=== PATIENT | female | born 1985 | race American Indian/Alaskan Native ===

== ENCOUNTER 2017-04-26 15:13 | Emergency (ER) | payer OTHER ==
[2017-04-26 15:18] VITALS: BP 144/98
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
== END 2017-04-26 18:45 | disposition home or self-care (01) ==
LOC: ED 15:13
DX: M54.5 Low back pain (principal); M54.2 Cervicalgia; M54.6 Pain in thoracic spine
CPT/HCPCS: 72040

== ENCOUNTER 2019-05-12 14:15 | Inpatient (IN) | payer OTHER ==
[2019-05-12 15:19] LABS: Basophils # (Auto) 0.1 K/mm3 (0.0-0.1); Basophils % (Auto) 0.7 % (0.0-1.8); Eosinophils # (Auto) 0.1 K/mm3 (0.0-0.4); Eosinophils % (Auto) 1.1 % (0.0-4.3); Hematocrit 40.6 % (30.3-42.9); Hemoglobin 12.9 gm/dl (10.1-14.3); Lymphocytes # (Auto) 2.7 K/mm3 (1.2-5.4); Lymphocytes % (Auto) 33.6 % (13.4-35.0); Mean Corpuscular HGB Conc 32 % (30-34); Mean Corpuscular Volume 84 fl (79-97); Monocytes # (Auto) 0.4 K/mm3 (0.0-0.8); Platelet Count 311 K/mm3 (140-440); Red Blood Count 4.81 M/mm3 (3.65-5.03); Red Cell Distribution Width 16.9 % (13.2-15.2)
[2019-05-12 15:42] LABS: BUN/Creatinine Ratio 8; Blood Urea Nitrogen 6 mg/dL (7-17); Calcium 9.2 mg/dL (8.4-10.2); Hemolysis Index 5
--- NOTE | 2019-05-12 18:20 | Emergency Department Report ---
ED General Adult HPI - General Chief complaint: Neuro Symptoms/Deficit Stated complaint: UNK Time Seen by Provider: 05/12/19 18:19 Source: patient Mode of arrival: Ambulatory Limitations: Altered Mental Status - History of Present Illness Initial comments: 33-year-old female with no past medical history presents stating that for the past 2 days she has been having a problem with the right leg. Patient states that she is having numbness and tingling in this leg as well. Patient states she is having difficulty with ambulating with this leg but is able to ambulate. Patient denies any slurred speech. Patient denies any slurred speech or similar symptoms in the past. - Related Data Previous Rx's Medication Instructions Recorded Last Taken Type Methocarbamol [Robaxin-750] 750 mg PO BID PRN #30 tablet 04/26/17 Unknown Rx Allergies Allergy/AdvReac Type Severity Reaction Status Date / Time No Known Allergies Allergy Unverified 04/26/17 15:15 ED Review of Systems ROS: Stated complaint: UNK Other details as noted in HPI Constitutional: denies: chills, fever Eyes: denies: eye pain, eye discharge, vision change ENT: denies: ear pain, throat pain Respiratory: denies: cough, shortness of breath, wheezing Cardiovascular: denies: chest pain, palpitations Endocrine: no symptoms reported Gastrointestinal: denies: abdominal pain, nausea, diarrhea Genitourinary: denies: urgency, dysuria, discharge Musculoskeletal: denies: back pain, joint swelling, arthralgia Skin: denies: rash, lesions Neurological: abnormal gait Psychiatric: denies: anxiety, depression Hematological/Lymphatic: denies: easy bleeding, easy bruising ED Past Medical Hx - Past Medical History Previous Medical History?: No Hx Hypertension: No Hx CVA: No - Social History Smoking Status: Never Smoker Substance Use Type: None - Medications Home Medications: Home Medications Medication Instructions Recorded Confirmed Last Taken Type Methocarbamol [Robaxin-750] 750 mg PO BID PRN #30 tablet 04/26/17 Unknown Rx ED Physical Exam - General Limitations: Altered Mental Status General appearance: alert, in no apparent distress, other (midly uncomfortable) - Head Head exam: Present: atraumatic, normocephalic - Eye Eye exam: Present: normal appearance - ENT ENT exam: Present: mucous membranes moist - Neck Neck exam: Present: normal inspection - Respiratory Respiratory exam: Present: normal lung sounds bilaterally. Absent: respiratory distress - Cardiovascular Cardiovascular Exam: Present: regular rate, normal rhythm. Absent: systolic murmur, diastolic murmur, rubs, gallop - GI/Abdominal GI/Abdominal exam: Present: soft, normal bowel sounds - Extremities Exam Extremities exam: Present: normal inspection - Back Exam Back exam: Present: normal inspection - Neurological Exam Neurological exam: Present: alert, oriented X3, CN II-XII intact, other (weakness (4/5) in RLE; Strength 5/5 in RUE; NO deficits in LUE or LLE) - Psychiatric Psychiatric exam: Present: normal affect, normal mood - Skin Skin exam: Present: warm, dry, intact, normal color. Absent: rash ED Course Vital Signs 05/12/19 14:38 Temperature 97.4 F L Pulse Rate 77 Respiratory 18 Rate Blood Pressure 137/95 O2 Sat by Pulse 100 Oximetry ED Medical Decision Making - Lab Data Result diagrams: 05/12/19 15:07 05/12/19 15:07 - Medical Decision Making Patient seen by teleneurologist. Patient on tele-neurology evaluation was noted to have mild pronator drift. Patient was also having difficulty with word finding. Tele-neurologist states that the patient should be admitted for stroke work-up. Patient to be admitted to the hospitalist service for continued management and treatment. - Differential Diagnosis Dehydration; Electrolyte Abnormality; Anemia; Intracranial Bleed Critical care attestation.: If time is entered above; I have spent that time in minutes in the direct care of this critically ill patient, excluding procedure time. ED Disposition Clinical Impression: Stroke Disposition: OP ADMIT IP TO THIS HOSP Is pt being admited?: No Condition: Stable Referrals: PRIMARY CARE, [Primary Care Provider] - 3-5 Days Time of Disposition: 20:30 Print Language: JAPANESE
[2019-05-12 19:15] LABS: INR 1.01 (0.87-1.13)
[2019-05-12 19:16] LABS: Partial Thromboplastin Time 27.5 Sec. (24.2-36.6)
--- NOTE | 2019-05-12 19:18 | Cat Scan Report ---
CT BRAIN: 05/12/2019 INDICATION / CLINICAL INFORMATION: ams with weakness. COMPARISON: None available. FINDINGS: BRAIN/INTRACRANIAL STRUCTURES: Unenhanced CT images of the brain were obtained. There is no evidence of acute abnormality. Some chronic appearing hypoattenuation is present in the l eft centrum semiovale and hickman radiata region, most consistent with old subcortical ischemic injury . There is no definite evidence of acute large vessel territory ischemic injury, hemorrhage, or mass. There are no abnormal extra-axial fluid collections. Incidental note is made of a 1 cm prominent perivascular space in the left sublenticular region, norm al variant. EXTRACRANIAL STRUCTURES: Unremarkable. IMPRESSION: No acute abnormality. Chronic left-sided white matter hypoattenuation. All CT scans at this location are performed using dose reduction to ALARA by means of automated expos ure control. Signer Name: Nahid Howe MD Signed: 05/12/2019 7:13 PM Workstation Name: [id number]
--- NOTE | 2019-05-12 19:18 | Emergency Department Report ---
ED Neuro Deficit HPI - General Chief Complaint: Neuro Symptoms/Deficit Stated Complaint: right sided weakness gabby x 2 days Time Seen by Provider: 05/12/19 18:19 Source: patient Mode of arrival: Ambulatory Limitations: No Limitations - History of Present Illness Initial Comments: . Onset/Timin -: Sudden Location: speech, right arm, right leg Presenting Symptoms: Present: Weak/Paralyzed One Side History of same: No Treatments Prior to Arrival: none - Related Data Home Medications: Previous Rx's Medication Instructions Recorded Last Taken Type Methocarbamol [Robaxin-750] 750 mg PO BID PRN #30 tablet 04/26/17 Unknown Rx Allergies/Adverse Reactions: Allergies Allergy/AdvReac Type Severity Reaction Status Date / Time No Known Allergies Allergy Unverified 04/26/17 15:15 ED Review of Systems ROS: Stated complaint: UNK Other details as noted in HPI Comment: All other systems reviewed and negative Constitutional: denies: chills, fever Eyes: denies: eye pain, eye discharge, vision change ENT: denies: ear pain, throat pain Respiratory: denies: cough, shortness of breath, wheezing Cardiovascular: denies: chest pain, palpitations Endocrine: no symptoms reported Gastrointestinal: denies: abdominal pain, nausea, diarrhea Genitourinary: denies: urgency, dysuria, discharge Musculoskeletal: denies: back pain, joint swelling, arthralgia Skin: denies: rash, lesions Neurological: abnormal gait Psychiatric: denies: anxiety, depression Hematological/Lymphatic: denies: easy bleeding, easy bruising ED Past Medical Hx - Past Medical History Previous Medical History?: No Hx Hypertension: No Hx CVA: No - Social History Smoking Status: Never Smoker Substance Use Type: None - Medications Home Medications: Home Medications Medication Instructions Recorded Confirmed Last Taken Type Methocarbamol [Robaxin-750] 750 mg PO BID PRN #30 tablet 04/26/17 Unknown Rx ED Neuro Physical Exam - General Limitations: Altered Mental Status General appearance: alert, in no apparent distress, other (midly uncomfortable) Suspected Stroke: Yes - NIHSS Assessment Interval: Baseline 1a. Level of Consciousness: alert/keenly responsive 1b. LOC Questions: answers both correctly 1c. LOC Commands: performs tasks correctly 2. Best Gaze: normal 3. Visual: partial hemianopia 4. Facial Palsy: normal symmetrical movement 5b. Motor Arm Right: drift 5a. Motor Arm Left: no drift 6a. Motor Leg Left: drift 6b. Motor Leg Right: no drift 7. Limb Ataxia: absent 8. Sensory: normal 9. Best Language: mild/moderate aphasia 10. Dysarthria: mild/moderate dysarthria 11. Extinction/Inattention: no abnormality Total Score: 5 Stroke Severity: Moderate Stroke - Psychiatric Psychiatric exam: Present: normal affect ED Course Vital Signs 05/12/19 14:38 Temperature 97.4 F L Pulse Rate 77 Respiratory 18 Rate Blood Pressure 137/95 O2 Sat by Pulse 100 Oximetry - Lab Data Result diagrams: 05/12/19 15:07 05/12/19 15:07 Lab Results 05/12/19 05/12/19 05/12/19 Range/Units 14:31 15:07 15:07 WBC 8.0 (4.5-11.0) K/mm3 RBC 4.81 (3.65-5.03) M/mm3 Hgb 12.9 (10.1-14.3) gm/dl Hct 40.6 (30.3-42.9) % MCV 84 (79-97) fl MCH 27 L (28-32) pg MCHC 32 (30-34) % RDW 16.9 H (13.2-15.2) % Plt Count 311 (140-440) K/mm3 Lymph % (Auto) 33.6 (13.4-35.0) % [place] % (Auto) 5.0 (0.0-7.3) % Eos % (Auto) 1.1 (0.0-4.3) % Baso % (Auto) 0.7 (0.0-1.8) % Lymph # 2.7 (1.2-5.4) K/mm3 [place] # 0.4 (0.0-0.8) K/mm3 Eos # 0.1 (0.0-0.4) K/mm3 Baso # 0.1 (0.0-0.1) K/mm3 Seg Neutrophils % 59.6 (40.0-70.0) % Seg Neutrophils # 4.8 (1.8-7.7) K/mm3 PT (12.2-14.9) Sec. INR (0.87-1.13) APTT (24.2-36.6) Sec. Sodium 138 (137-145) mmol/L Potassium 3.9 (3.6-5.0) mmol/L Chloride 103.2 (98-107) mmol/L Carbon Dioxide 22 (22-30) mmol/L Anion Gap 17 mmol/L BUN 6 L (7-17) mg/dL Creatinine 0.8 (0.7-1.2) mg/dL Estimated GFR > 60 ml/min BUN/Creatinine Ratio 8 % Glucose 196 H (65-100) mg/dL POC Glucose 149 H (70-105) Calcium 9.2 (8.4-10.2) mg/dL 05/12/19 Range/Units 18:35 WBC (4.5-11.0) K/mm3 RBC (3.65-5.03) M/mm3 Hgb (10.1-14.3) gm/dl Hct (30.3-42.9) % MCV (79-97) fl MCH (28-32) pg MCHC (30-34) % RDW (13.2-15.2) % Plt Count (140-440) K/mm3 Lymph % (Auto) (13.4-35.0) % [place] % (Auto) (0.0-7.3) % Eos % (Auto) (0.0-4.3) % Baso % (Auto) (0.0-1.8) % Lymph # (1.2-5.4) K/mm3 [place] # (0.0-0.8) K/mm3 Eos # (0.0-0.4) K/mm3 Baso # (0.0-0.1) K/mm3 Seg Neutrophils % (40.0-70.0) % Seg Neutrophils # (1.8-7.7) K/mm3 PT 13.4 (12.2-14.9) Sec. INR 1.01 (0.87-1.13) APTT 27.5 (24.2-36.6) Sec. Sodium (137-145) mmol/L Potassium (3.6-5.0) mmol/L Chloride (98-107) mmol/L Carbon Dioxide (22-30) mmol/L Anion Gap mmol/L BUN (7-17) mg/dL Creatinine (0.7-1.2) mg/dL Estimated GFR ml/min BUN/Creatinine Ratio % Glucose (65-100) mg/dL POC Glucose (70-105) Calcium (8.4-10.2) mg/dL - Medical Decision Making [facility] This patient was seen as a STAT consultation for stroke like symptoms Impression: Subacute right sided deficits - concern for ischemic strokes, question chronicity Differential also includes atypical etiologies such as demyelinating disease, although she says this is acute and has never had other associated symptoms in the past Hyperglycemia, quetsion undiagnosed diabetes Recommendations: Not tPA candidate as she presented well outside 4.5h window. Symptoms not suggestive of LVO Admit for stroke workup Aspirin 81 mg daily for stroke ppx MRI brain w wo contrast to rule out stroke; demyelinating disease also in differential given age and fifrst time events, multiple lesions CTA head and neck nonurgent to assess intra and extracranial vessels Telemetry, TTE BP permissive up to 180/100 Lipid panel goal LDL <70 with statin A1c goal euglycemia PT.OT.FRONT END ARCHITECT evals VTE ppx per primary Stroke education Neurology consult upon admission D/w ED physician CC: right sided weakness x 2 days History of Present Illness: 33 yr old female, no known medical history, came to ED today on urging of family. For past 2 days she has been dragging right leg/ strenth 4/5 right upper extremity. She also has some word finding difficulties but no gross slurred speech or reported visual issues. She says it happened all of a sudden. No history of prior stroke. MS or related conditions. family history of hypertension in grandmother Diagnostic Testing: CT head with left subcortical ischemic changes no hemorrhage Vital Signs: reviewed Exam: Mental Status: Awake, alert, oriented Naming: Intact Repetition: slight latency Speech: paraphasic errors when reading longer sentences Cranial Nerves: Pupils: Equal round Extraocular movements: Intact in all cardinal gaze Ptosis: Absent Visual tay: Counted 4 fingers on left instead of 2 Facial sensation: Intact to light touch Facial movements: Intact and symmetric Motor Exam: R pronator drift, mild right leg drift Tremor/Abnormal Movements: Resting tremor: Absent Intention tremor: Absent Postural tremor: Absent Sensory Exam: Light touch: Intact Coordination: Finger to nose: Intact Medical Decision Making: - Extensive number of diagnosis or management options are considered above. - Extensive amount of complex data reviewed. - High risk of complication and/or morbidity or mortality are associated with differential diagnostic considerations above. - There may be uncertain outcome and increased probability of prolonged functional impairment or high probability of severe prolonged functional impairment associated with some of these differential diagnosis. Medical Data Reviewed: 1.Data reviewed include clinical labs, radiology, Medical Tests; 2.Tests results discussed w/performing or interpreting physician; 3.Obtaining/reviewing old medical records; 4.Obtaining case history from another source; 5.Independent review of image, tracing or specimen. Patient was informed the Neurology Consult would happen via TeleHealth consult by way of interactive audio and video telecommunications, and consented to receiving care in this manner. - Thrombolytic Inclusion/Exclusion Thrombolytic Exclusion Criteria: Symptom Onset > 3 Hours Critical care attestation.: If time is entered above; I have spent that time in minutes in the direct care of this critically ill patient, excluding procedure time. ED Disposition Clinical Impression: Stroke Disposition: DC-09 OP ADMIT IP TO THIS HOSP Is pt being admited?: Yes Condition: Stable Referrals: PRIMARY CARE,MD [Primary Care Provider] - 3-5 Days
[2019-05-12] MEDS ORDERED: ASPIRIN EC 325 MG TAB PO ONE (19:45)
--- NOTE | 2019-05-12 19:53 | XRay Report ---
CHEST 1 VIEW INDICATION: Chest pain. COMPARISON: None. FINDINGS: Support devices: None. Heart: Normal. Lungs/Pleura: No acute pulmonary or pleural findings. IMPRESSION: 1. No acute findings. Signer Name: Derek Garcia MD Signed: 05/12/2019 7:49 PM Workstation Name: [id number]
--- NOTE | 2019-05-12 21:10 | History and Physical Report ---
History of Present Illness Date of examination: 05/12/19 Date of admission: 05/12/19 Chief complaint: Right-sided weakness History of present illness: Patient is a 33-year-old female with no prior medical history who presents to ER with complaints of unsteady gait and right-sided weakness intermittently x 2 days. Family states that patient experienced sudden difficulties with forming complete sentences and uncoordinated gait today.Patient transported to [facility] via private vehicle for further care and evaluation. Patient seen and evaluated in the emergency department, Tele-neurology was consulted. Patient found to have symptoms that were suspicious for CVA. Patient placed in observation status and admitted to medical floor for further evaluation on CVA protocol. Patient denies fever, chills, chest pain, palpitations, syncope, dizziness or recent ill contacts. No prior admission for review. No medication listed for reconciliation at time of admission. Past History Past Medical History: No medical history Past Surgical History: Social history: lives with family Family history: hypertension Medications and Allergies Allergies Allergy/AdvReac Type Severity Reaction Status Date / Time No Known Allergies Allergy Unverified 04/26/17 15:15 Home Medications Medication Instructions Recorded Confirmed Last Taken Type Methocarbamol [Robaxin-750] 750 mg PO BID PRN #30 tablet 04/26/17 Unknown Rx Review of Systems All systems: negative Musculoskeletal: leg numbness/tingling, muscle weakness Neurological: weakness, change in speech Exam - Physical Exam Narrative exam: - Physical Exam Narrative exam: General appearance: Present: mild distress noted - EENT Eyes: Present: PERRL ENT: hearing intact, clear oral mucosa Mild dysphasia - Neck Neck: Present: supple, normal ROM - Respiratory Respiratory effort: normal Respiratory: bilateral: Clear to auscultation - Cardiovascular Heart Sounds: Present: S1 & S2. Absent: rub, click - Extremities Extremities: pulses symmetrical, No edema Peripheral Pulses: within normal limits - Abdominal General gastrointestinal: Present: , non-distended, normal bowel sounds genitourinary: Present: normal - Integumentary Integumentary: Present: clear, warm, dry - Musculoskeletal Musculoskeletal: weakness (4/5) in RLE, strength unequal bilaterally - Psychiatric Psychiatric: appropriate mood/affect, intact judgment & insight - Neurologic Neurologic: CNII-XII intact, moves all extremities - Constitutional Vitals: Temp Pulse Resp BP Pulse Ox 97.4 F L 56 L 17 154/82 100 05/12/19 14:38 05/12/19 20:00 05/12/19 20:00 05/12/19 20:00 05/12/19 20:00 Results - Labs CBC & Chem 7: 05/12/19 15:07 05/12/19 15:07 Labs: Laboratory Last Values WBC 8.0 K/mm3 (4.5-11.0) 05/12/19 15:07 RBC 4.81 M/mm3 (3.65-5.03) 05/12/19 15:07 Hgb 12.9 gm/dl (10.1-14.3) 05/12/19 15:07 Hct 40.6 % (30.3-42.9) 05/12/19 15:07 MCV 84 fl (79-97) 05/12/19 15:07 MCH 27 pg (28-32) L 05/12/19 15:07 MCHC 32 % (30-34) 05/12/19 15:07 RDW 16.9 % (13.2-15.2) H 05/12/19 15:07 Plt Count 311 K/mm3 (140-440) 05/12/19 15:07 Lymph % (Auto) 33.6 % (13.4-35.0) 05/12/19 15:07 [place] % (Auto) 5.0 % (0.0-7.3) 05/12/19 15:07 Eos % (Auto) 1.1 % (0.0-4.3) 05/12/19 15:07 Baso % (Auto) 0.7 % (0.0-1.8) 05/12/19 15:07 Lymph # 2.7 K/mm3 (1.2-5.4) 05/12/19 15:07 [place] # 0.4 K/mm3 (0.0-0.8) 05/12/19 15:07 Eos # 0.1 K/mm3 (0.0-0.4) 05/12/19 15:07 Baso # 0.1 K/mm3 (0.0-0.1) 05/12/19 15:07 Seg Neutrophils % 59.6 % (40.0-70.0) 05/12/19 15:07 Seg Neutrophils # 4.8 K/mm3 (1.8-7.7) 05/12/19 15:07 PT 13.4 Sec. (12.2-14.9) 05/12/19 18:35 INR 1.01 (0.87-1.13) 05/12/19 18:35 APTT 27.5 Sec. (24.2-36.6) 05/12/19 18:35 Sodium 138 mmol/L (137-145) 05/12/19 15:07 Potassium 3.9 mmol/L (3.6-5.0) 05/12/19 15:07 Chloride 103.2 mmol/L (98-107) 05/12/19 15:07 Carbon Dioxide 22 mmol/L (22-30) 05/12/19 15:07 Anion Gap 17 mmol/L 05/12/19 15:07 BUN 6 mg/dL (7-17) L 05/12/19 15:07 Creatinine 0.8 mg/dL (0.7-1.2) 05/12/19 15:07 Estimated GFR > 60 ml/min 05/12/19 15:07 BUN/Creatinine Ratio 8 % 05/12/19 15:07 Glucose 196 mg/dL (65-100) H 05/12/19 15:07 POC Glucose 149 (70-105) H 05/12/19 14:31 Calcium 9.2 mg/dL (8.4-10.2) 05/12/19 15:07 - Imaging and Cardiology Chest x-ray: report reviewed CT Scan - head: report reviewed Imaging and Cardiology: CHEST 1 VIEW INDICATION: Chest pain. COMPARISON: None. FINDINGS: Support devices: None. Heart: Normal. Lungs/Pleura: No acute pulmonary or pleural findings. IMPRESSION: 1. No acute findings. CT BRAIN: 05/12/2019 INDICATION / CLINICAL INFORMATION: ams with weakness. COMPARISON: None available. FINDINGS: BRAIN/INTRACRANIAL STRUCTURES: Unenhanced CT images of the brain were obtained. There is no evidence of acute abnormality. Some chronic appearing hypoattenuation is present in the left centrum semiovale and hickman radiata region, most consistent with old subcortical ischemic injury. There is no definite evidence of acute large vessel territory ischemic injury, hemorrhage, or mass. There are no abnormal extra-axial fluid collections. Incidental note is made of a 1 cm prominent perivascular space in the left sublenticular region, normal variant. EXTRACRANIAL STRUCTURES: Unremarkable. IMPRESSION: No acute abnormality. Chronic left-sided white matter hypoattenuation. Assessment and Plan Assessment and plan: Patient seen in conjunction with Dr. Boyle, who agrees with plan of care. CVA -CT head No acute abnormality, Chronic left-sided white matter hypoattenuation. -neuro checks -lipid panel, statin therapy -carotid Doppler, echocardiogram ordered -antiplatelet therapy -PT/OT/speech therapy if needed -Balanced diet increase physical activity at discharge. -Tele-neurology consulted in ED -neurology consulted DVT prophylaxis -SCDs bilateral extremities Advance Directives: No VTE prophylaxis?: Mechanical Plan of care discussed with patient/family: Yes
[2019-05-12] MEDS ORDERED: ACETAMINOPHEN 325 MG TAB PO PRN (21:11)
[2019-05-12] MEDS ORDERED: ONDANSETRON 4 MG/2 ML INJ IV PRN (21:11)
[2019-05-12] MEDS ORDERED: MORPHINE 2 MG/1 ML INJ IV PRN (21:11)
[2019-05-12] MEDS ORDERED: ASPIRIN 325 MG TAB ONE (23:02)
[2019-05-13] MEDS: SODIUM CHLORIDE 0.9% 1000 ML 1,000 ML IV SCH ×2 (00:11→06:09)
[2019-05-13 04:59] LABS: Amphetamine Screen,Urine PRESUMPTIVE NEGATIVE; Benzodiazepines Screen,Urine PRESUMPTIVE NEGATIVE; Cocaine Screen,Urine PRESUMPTIVE NEGATIVE; Methadone Screen,Urine PRESUMPTIVE NEGATIVE; Opiate Screen,Urine PRESUMPTIVE NEGATIVE
[2019-05-13 05:24] LABS: Cannabinoid Screen,Urine PRESUMPTIVE POSITIVE
[2019-05-13 05:35] LABS: Basophils % (Auto) 0.6 % (0.0-1.8); Eosinophils # (Auto) 0.1 K/mm3 (0.0-0.4); Eosinophils % (Auto) 1.2 % (0.0-4.3); Hematocrit 40.1 % (30.3-42.9); Hemoglobin 12.7 gm/dl (10.1-14.3); Lymphocytes # (Auto) 2.3 K/mm3 (1.2-5.4); Lymphocytes % (Auto) 32.3 % (13.4-35.0); Mean Corpuscular HGB Conc 32 % (30-34); Mean Corpuscular Volume 84 fl (79-97); Monocytes # (Auto) 0.3 K/mm3 (0.0-0.8); Monocytes % (Auto) 4.7 % (0.0-7.3); Platelet Count 315 K/mm3 (140-440); Red Blood Count 4.78 M/mm3 (3.65-5.03); Red Cell Distribution Width 16.7 % (13.2-15.2)
[2019-05-13 05:48] LABS: BUN/Creatinine Ratio 8; Blood Urea Nitrogen 5 mg/dL (7-17); Calcium 8.9 mg/dL (8.4-10.2); Chol/HDL Ratio 6.34 %; HDL Cholesterol 35 mg/dL (40-59); Hemolysis Index 12; LDL Cholesterol,Direct 172 mg/dL (50-130)
[2019-05-13] MEDS ORDERED: FLU VACC QUAD 2019-20 (3 YR UP)/PF 60 MCG/0.5 ML SYRINGE IM ONE (12:00)
--- NOTE | 2019-05-13 13:38 | Magnetic Resonance Report ---
MRI BRAIN 05/13/2019 INDICATION / CLINICAL INFORMATION: MAIN: stroke vs demyelinating disease, WEAKNESS. TECHNIQUE: Multiplanar, multisequence MR images of the brain were obtained. COMPARISON: CT brain 05/12/2019 FINDINGS: BRAIN / INTRACRANIAL CONTENTS: Unenhanced MR images of the brain were obtained and compared to the CT scan from 05/12/2019. The areas of hypoattenuation seen on the CT scan correspond to areas of restricted diffusion. Patchy and rounded areas of restricted diffusion are present in the left centrum semiovale, left internal ca psule, and left subinsular white matter. In addition, there are numerous oval-shaped foci of increased T2-weighted signal present in the periv entricular white matter bilaterally. On the postcontrast images, there is abnormal enhancement located in the posterior aspect of the inte rnal capsule. The enhancement pattern does not precisely correspond to the area of restricted diffusi on. Ventricles and sulci are normal in size and shape. There is no evidence of hemorrhage or mass. There are no abnormal extra-axial fluid collections. EXTRACRANIAL: Unremarkable CRANIOCERVICAL JUNCTION: No significant abnormality. VASCULAR FLOW-VOIDS: No significant abnormality. IMPRESSION: Unusual pattern in combination of white matter lesions, which include oval-shaped periventricular le sions, typical of demyelination/multiple sclerosis, as well as more focal areas of restricted diffusi on, with clear-cut decreased ADC signal. These lesions have an appearance of acute ischemic injury, a lthough associated with more typical demyelinating lesions, may be an indication of more prominent an d active demyelination. It would be unusual for a patient of this age to present with both multiple s clerosis and small vessel acute ischemic injury. Signer Name: Nahid Howe MD Signed: 05/13/2019 1:34 PM Workstation Name: [id number]
--- NOTE | 2019-05-13 13:43 | Event Note ---
Date: 05/13/19 Patient seen and examined Patient is a 33-year-old female with no prior medical history who presents to ER with complaints of unsteady gait and right-sided weakness intermittently x 2 days. MRI suggestive of MS. PT eval pending, will follow neurology recommendation.
[2019-05-13] MEDS: ASPIRIN 325 MG TAB PO SCH (14:08)
--- NOTE | 2019-05-13 16:58 | Vascular Lab Report ---
"DUPLEX DOPPLER ULTRASOUND CAROTID, BILATERAL INDICATION: Right-sided weakness. FINDINGS: RIGHT CAROTID: No significant atherosclerotic plaque. Right CCA velocity: 116 cm/sec. Right ICA peak systolic velocity: 105 cm/sec. ICA/CCA PSV Ratio: 1.1. Right Vertebral Artery: Antegrade flow. LEFT CAROTID: No significant atherosclerotic plaque. Left CCA velocity: 92 cm/sec. Left ICA peak systolic velocity: 41 cm/sec. ICA/CCA PSV Ratio: 0.5. Left Vertebral Artery: Antegrade flow. IMPRESSION: 1. Right Internal Carotid Artery: Less than 50% diameter stenosis. 2. Left Internal Carotid Artery: Less than 50% diameter stenosis. Velocity criteria are extrapolated from diameter data as defined by the Society of Radiologists in Ul trasound Consensus Conference, Radiology 2003; 229;340-346. Degree of Stenosis (%) || ICA PSV (cm/sec) || Plaque estimate (%) || ICA/CCA PSV Ratio Normal <125 None <2.0 <50 <125 <50 <2.0 50-69 125-230 50 2.0-4.0 70 but less than 100 >230 50 >4.0 Near occlusion High, low, or none visible variable Total occlusion None visible; no lumen N/A Signer Name: Oliver Palumbo MD Signed: 05/13/2019 4:53 PM Workstation Name: [id number]"
--- NOTE | 2019-05-13 21:31 | Consultation ---
History of Present Illness Consult date: 05/13/19 Reason for Consult: Right sided weakness Chief complaint: Right sided weakness History of present illness: Patient is a 33 y/o woman w/ no past medical history. She began to experience right UE/LE weakness 3 days ago. Patient was hesitant at coming to the hospital, however was told to come by family. She continues to experience right sided weakness, and has not had any major change in symptoms since onset. Past History Past Medical History: No medical history Past Surgical History: Social history: lives with family, other (marijuana) Family history: hypertension Medications and Allergies Allergies Allergy/AdvReac Type Severity Reaction Status Date / Time No Known Allergies Allergy Unverified 04/26/17 15:15 Home Medications Medication Instructions Recorded Confirmed Last Taken Type Methocarbamol [Robaxin-750] 750 mg PO BID PRN #30 tablet 04/26/17 Unknown Rx Active Meds: Active Medications Acetaminophen (Tylenol) 650 mg PO Q4H PRN PRN Reason: Pain MILD(1-3)/Fever >100.5/REYES Aspirin (Aspirin) 325 mg PO QDAY [facility] Last Admin: 05/13/19 14:08 Dose: 325 mg Documented by: Atorvastatin Calcium (Lipitor) 40 mg PO QHS [facility] Last Admin: 05/12/19 23:12 Dose: 40 mg Documented by: Sodium Chloride (Nacl 0.9% 1000 Ml) 1,000 mls @ 125 mls/hr IV DIRECT [facility] Last Admin: 05/13/19 06:09 Dose: 125 mls/hr Documented by: Morphine Sulfate (Morphine) 2 mg IV Q4H PRN PRN Reason: Pain, Moderate (4-6) Ondansetron HCl (Zofran) 4 mg IV Q8H PRN PRN Reason: Nausea And Vomiting Sodium Chloride (Sodium Chloride Flush Syringe 10 Ml) 10 ml IV BID [facility] Last Admin: 05/13/19 14:07 Dose: 10 ml Documented by: Sodium Chloride (Sodium Chloride Flush Syringe 10 Ml) 10 ml IV PRN PRN PRN Reason: LINE FLUSH Sodium Chloride (Sodium Chloride Flush Syringe 10 Ml) 10 ml IV PRN PRN PRN Reason: LINE FLUSH Review of Systems All systems: negative Neurological: weakness Physical Examination - Vital Signs Vital Signs: Vital Signs Temp Pulse Resp BP Pulse Ox 97.4 F L 71 18 137/95 100 03/18/20 14:20 05/12/19 14:20 05/12/19 14:20 05/12/19 14:20 05/12/19 14:20 - Physical Exam Narrative exam: Patient is alert, awake, oriented x4, follows complex commands. No dysarthria or aphasia noted. PERRL, EOMI, VFF, tongue midline, bilaterally intact to LT, no facial weakness noted. 4/5 in RUE/RLE, 5/5 in LUE/LLE. Decreased on right to light touch. Bilaterally intact to FTN and HTS. 2+ reflexes throughout. - Constitutional General appearance: comfortable - EENT EENT: Present: ATNC, PERRL, mucous membranes moist - Respiratory Respiratory: Present: lungs clear, normal breath sounds - Cardiovascular Cardiovascular: Present: regular rate, normal S1, normal S2 Extremities: Present: no clubbing, cyanosis, no inflammation - Gastrointestinal Gastrointestinal: Present: normoactive bowel sounds, soft, non-tender - Integumentary Integumentary: Present: normal - Musculoskeletal Musculoskeletal: Present: no fluid collection, no pain - Psychiatric Psychiatric: Present: mood/affect appropriate Results - Laboratory Findings CBC and BMP: 05/13/19 04:05 05/13/19 04:05 Abnormal Lab Findings: Abnormal Labs 05/12/19 05/12/19 05/12/19 14:31 15:07 15:07 MCH 27 L RDW 16.9 H Sodium Potassium BUN 6 L Creatinine Glucose 196 H POC Glucose 149 H Cholesterol LDL Cholesterol Direct HDL Cholesterol 05/12/19 05/13/19 05/13/19 21:16 00:15 04:05 MCH 27 L RDW 16.7 H Sodium Potassium BUN Creatinine Glucose POC Glucose 132 H 117 H Cholesterol LDL Cholesterol Direct HDL Cholesterol 05/13/19 04:05 MCH RDW Sodium 134 L Potassium 3.4 L BUN 5 L Creatinine 0.6 L Glucose 145 H POC Glucose Cholesterol 222 H LDL Cholesterol Direct 172 H HDL Cholesterol 35 L Assessment and Plan Patient is a 33 y/o woman w/ no PMH who p/w right sided weakness. According to the patient's clinical findings, it is likely that she has an acute ischemic stroke. However, there are findings on MRI indicative of possible concurrent NAIL GALVANIZER demyelinating disease. MRI brain revealed areas which enhanced with contrast, which did not correlate to area of diffusion restriction. Further, patient also had jeannette-ventricular areas of hyperintensity on T2 FLAIR. Plan: 1. Stroke: - MRI braie: Notable for areas of diffusion restriction in left subcortical region which correlates with ADC changes, indicative of likely stroke. Location appears to be in internal capsule, which also further indicates possible stroke. Further, areas on MRI brain which enhanced with contrast, which did not correl ate to area of diffusion restriction, indicate possible demyelinating disease. Also had jeannette-ventricular areas of hyperintensity on T2 FLAIR. - CTA head/neck: pending - Echo: pending - CUS: no significant stenosis - Cont. ASA - Cont. statin. LDL goal <70 - Given patient's age, would need to rule out hypercoagulable state with hypercoagulable workup. Recommend hematology consult. - Telemetry monitoring while in house - PT/OT/ST - DVT Ppx: Recommend lovenox 2. Hypertension: - Recommend BP goal of normotension. 3. Possible MS: - Check MRI C/T/L spine w/wo - LP with CSF studies including oligoclonal bands. - Check BATSHEVA, ESR, CRP, Syphilis panel, GUADALUPE level. - Will not start IV steroids at this time. May consider if remainder of workup indicates MS. - Recommend for patient to have outpatient f/u with neurology as she will require further long-term management and may require disease modifying therapies if workup indicates demyelinating disease. - Will continue to monitor. Thank you for allowing me to take part in the care of this patient. Warren Arnold MD Neurology
[2019-05-14] MEDS ORDERED: LIDOCAINE (1%) 10 MG/1 ML VIAL 20 ML MDV ONE (09:54)
--- NOTE | 2019-05-14 11:41 | Fluoroscopy Report ---
FLUOROSCOPICALLY GUIDED LUMBAR PUNCTURE INDICATION: possible MS. COMPARISON: No relevant prior imaging study available. FINDINGS: Informed consent for the procedure was obtained. The patient was placed prone on the fluoroscopic tab le and using fluoroscopic guidance, sterile technique and 1% lidocaine local anesthesia, an 18-gauge spinal needle was introduced at the L4 level. Despite multiple attempts with this needle and an addit ional attempt with a longer 20-gauge needle, no fluid could be obtained. The needles appeared to be i n good position. IMPRESSION: 1. Unsuccessful lumbar puncture for retrieval of fluid. This can be due to number factors including B IA, low CSF pressure and dehydration. Signer Name: Caden Guzman MD Signed: 05/14/2019 11:37 AM Workstation Name: [id number]
--- NOTE | 2019-05-14 11:58 | Progress Note ---
Assessment and Plan Acute stroke - MRI showed areas of diffusion restriction in left subcortical region which correlates with acute CVA in internal capsule, - CTA head/neck: pending - Echo: pending - Cont. ASA, statin - Cont. statin. LDL goal <70 - Telemetry monitoring while in house - PT/OT/ST HTN, stable Possible MS - ordered MRI C/T/L spine w/wo - prdered LP with CSF studies including oligoclonal bands. - Check BATSHEVA, ESR, CRP, Syphilis panel, GUADALUPE level. - DVT Ppx: lovenox Brief History: Patient is a 33-year-old female with no prior medical history who presents to ER with complaints of unsteady gait and right-sided weakness intermittently x 2 days. MRI suggestive of MS. PT eval pending, will follow neurology recommendation. Physical exam: GENERAL: well-developed and well-nourished -[place] female lying on bed appeared to be in no discomfort. HEENT: Normocephalic. Atraumatic. No conjunctival congestion or icterus. Patie nt has moist mucous membranes. NECK: Supple. Trachea midline. CHEST/LUNGS: Clear to auscultated bilaterally, breathing nonlabored. No wheezes crackles or rhonchi. HEART/CARDIOVASCULAR: Regular in rate and rhythm. S1 and S2 positive. ABDOMEN: Abdomen is soft, nontender. Patient has normal bowel sounds. SKIN: There is no rash. Warm and dry. NEURO: Right-sided weakness. Follows command. MUSCULOSKELETAL: No joint effusion or tenderness. EXTRIMITY: No edema, no cyanosis or clubbing. PSYCH: Cooperative. Subjective Date of service: 05/13/19 Interval history: Patient seen and examined. Medical records and medication list reviewed. No acute event overnight noted by the RN. Patient denies any chest pain or difficulty breathing. Patient is tolerating diet. Continues to complains of right-sided weakness, getting carotid Doppler US at bedside Discussed plan of care at bedside with patient. Objective - Constitutional Vitals: Vital Signs - 12hr 05/14/19 05/14/19 05/14/19 00:00 03:56 08:00 Temperature 98.2 F Pulse Rate 60 63 66 Respiratory 18 18 Rate Blood Pressure 145/77 O2 Sat by Pulse 100 98 Oximetry 05/14/19 08:26 Temperature 98.3 F Pulse Rate 78 Respiratory 18 Rate Blood Pressure 144/85 O2 Sat by Pulse 100 Oximetry - Labs CBC & Chem 7: 05/13/19 04:05 05/13/19 04:05
--- NOTE | 2019-05-14 14:22 | Progress Note ---
Assessment and Plan Acute stroke - MRI showed areas of diffusion restriction in left subcortical region which correlates with acute CVA in internal capsule, - CTA head/neck: still pending - Echo: pending - Cont. ASA, statin - Cont. statin. LDL goal <70 - Telemetry monitoring while in house - PT/OT/ST - hypercoaguable work up ordered, hematology consult HTN, stable Possible MS - MRI brain mores suggestive of demyelination - ordered MRI C/T/L spine w/wo - pending - s/p LP today - pending CSF studies including oligoclonal bands. - will follow BATSHEVA, ESR, CRP, Syphilis panel, GUADALUPE level. - DVT Ppx: lovenox 05/13 : plan to start on steroid if MRI spine suggestive of demyelinating disease. LP done today but no CSF drained Brief History: Patient is a 33-year-old female with no prior medical history who presents to ER with complaints of unsteady gait and right-sided weakness intermittently x 2 days. MRI suggestive of MS. PT eval pending, will follow neurology recommendation. Physical exam: GENERAL: well-developed and well-nourished -[place] female lying on bed appeared to be in no discomfort. HEENT: Normocephalic. Atraumatic. No conjunctival congestion or icterus. Patient has moist mucous membranes. NECK: Supple. Trachea midline. CHEST/LUNGS: Clear to auscultated bilaterally, breathing nonlabored. No wheezes crackles or rhonchi. HEART/CARDIOVASCULAR: Regular in rate and rhythm. S1 and S2 positive. ABDOMEN: Abdomen is soft, nontender. Patient has normal bowel sounds. SKIN: There is no rash. Warm and dry. NEURO: Right-sided weakness. Follows command. MUSCULOSKELETAL: No joint effusion or tenderness. EXTRIMITY: No edema, no cyanosis or clubbing. PSYCH: Cooperative. Subjective Date of service: 05/14/19 Interval history: Patient seen and examined. Medical records and medication list reviewed. No acute event overnight noted by the RN. Patient denies any chest pain or difficulty breathing. Patient is tolerating diet. Continues to complains of right-sided weakness, Discussed plan of care at bedside with patient. Objective - Constitutional Vitals: Vital Signs - 12hr 05/14/19 05/14/19 05/14/19 03:56 08:00 08:26 Temperature 98.2 F 98.3 F Pulse Rate 63 66 78 Respiratory 18 18 18 Rate Respiratory Rate [no pain] Blood Pressure 145/77 144/85 O2 Sat by Pulse 100 98 100 Oximetry 05/14/19 12:00 Temperature Pulse Rate Respiratory Rate Respiratory 20 Rate [no pain] Blood Pressure O2 Sat by Pulse Oximetry - Labs CBC & Chem 7: 05/13/19 04:05 05/13/19 04:05
--- NOTE | 2019-05-14 16:11 | Magnetic Resonance Report ---
MRI THORACIC SPINE WITHOUT CONTRAST INDICATION / CLINICAL INFORMATION: Possible multiple sclerosis., rt sided weakness. TECHNIQUE: Multisequence, multiplanar images of the thoracic spine were obtained. COMPARISON: None available. FINDINGS: ALIGNMENT: Normal alignment overall. VERTEBRAE:Normal marrow signal and vertebral body height for age. VISUALIZED SPINAL CORD: Large [id number]-po-vzlb and decreased gxzezh-wp-xxgos ratio Limited evaluation of the thoracic spinal cord. No intrinsic cord lesions are identified. There is no indication of cord c ompression. DEGENERATIVE FINDINGS: No significant degenerative findings. Is no indication of disc herniation, azam tral canal stenosis or neuroforaminal encroachment. PARASPINAL SOFT TISSUES: No significant abnormality. CONTRAST ADMINISTRATION: Following administration of intravenous contrast material enhancement of nor mal vascular structures is demonstrated. No areas of abnormal contrast enhancement are identified. IMPRESSION: 1. No focal disc herniation, spinal canal stenosis or nerve root compression. 2. No intrinsic cord lesions are identified. Signer Name: Manan Inman MD Signed: 05/14/2019 4:07 PM Workstation Name: [id number]
--- NOTE | 2019-05-14 16:43 | Magnetic Resonance Report ---
MRI LUMBAR SPINE WITHOUT AND WITH CONTRAST INDICATION / CLINICAL INFORMATION: Possible multiple sclerosis. Right-sided weakness. TECHNIQUE: Multisequence, multiplanar images of the lumbar spine were obtained. COMPARISON: None available. FINDINGS: ALIGNMENT: Normal alignment is maintained throughout the lumbar region. VERTEBRAE:Normal bone marrow signal intensity is maintained throughout the lumbar region. Vertebral m orphology is normally preserved throughout. DISC MORPHOLOGY:Disc height and disc signal intensity are normally maintained throughout the lumbar r egion. VISUALIZED SPINAL CORD: Distal thoracic spinal cord, conus and nerve roots of the cauda equina all lin ve an unremarkable appearance. Conus terminates at about the level of the superior endplate of L2. [id number] ANALYSIS: L1-2: No significant abnormality. L2-3: No significant abnormality. L3-4: No significant abnormality. L4-5: A small right-sided facet joint effusion is demonstrated. L5-S1: No significant abnormality. PARASPINAL SOFT TISSUES: Evaluation of the paraspinous soft tissues reveals no definite abnormalities . Contrast administration: Following administration of intravenous contrast material enhancement of nor mal vascular structures is demonstrated. No areas of abnormal contrast enhancement are identified. IMPRESSION: 1. No focal disc herniation, spinal canal stenosis or nerve root compression. 2. No abnormalities are identified to involve the conus or nerve roots of the cauda equina. Signer Name: Manan Inman MD Signed: 05/14/2019 4:39 PM Workstation Name: [id number]
--- NOTE | 2019-05-14 16:55 | Magnetic Resonance Report ---
MRI CERVICAL SPINE WITHOUT AND WITH CONTRAST INDICATION / CLINICAL INFORMATION: Possible multiple sclerosis. RT SIDED WEAKNESS. TECHNIQUE: Multisequence, multiplanar images of the cervical spine were obtained. COMPARISON: None available. FINDINGS: CRANIOCERVICAL JUNCTION:No significant abnormality. ALIGNMENT: No significant abnormality. VERTEBRAE:Normal bone marrow signal intensity is maintained throughout the cervical region. VISUALIZED SPINAL CORD: Multiple cord lesions are identified in the cervical region. The most well-ci rcumscribed abnormalities are seen in the dorsal aspect of the cord at the C1-2 level. A second well- circumscribed cord lesion is seen at the C7 vertebral body. A similar finding is present at the T2-3 level. More subtle, less well-circumscribed signal changes are seen within the cord elsewhere. Taken together with the findings on recent MRI brain these cord lesions are likely secondary to demyelinati ng plaques of multiple sclerosis. [id number] ANALYSIS: C2-3: No significant disc abnormality, spinal canal stenosis, or neural foraminal stenosis. C3-4: No significant disc abnormality, spinal canal stenosis, or neural foraminal stenosis. C4-5: No significant disc abnormality, spinal canal stenosis, or neural foraminal stenosis. C5-6: Disc desiccation is noted. There is a small right paracentral and lateral recess disc protrusio n with associated thecal sac deformity and mild flattening the ventral surface of the cord to the rig ht of the midline. Central spinal canal and neuroforamina are adequately maintained. C6-7: No significant disc abnormality, spinal canal stenosis, or neural foraminal stenosis. C7-T1: No significant disc abnormality, spinal canal stenosis, or neural foraminal stenosis. PARASPINAL SOFT TISSUES: No significant abnormality. Contrast administration: Following administration of intravenous contrast material there is a suggest ion of subtle contrast enhancement within the cord at the C4 and C5 levels. These are seen only on po stcontrast fat-saturated [id number] scans in the sagittal plane. I cannot confirm abnormal contrast e nhancement on the axial postcontrast T1-weighted sequence. These may represent active areas of demyel ination. IMPRESSION: 1. Multifocal parenchymal signal changes within the cervical spinal cord suggesting the presence of d emyelinating disease involving the cervical and upper thoracic spinal cord as described above. Signer Name: Manan Inman MD Signed: 05/14/2019 4:50 PM Workstation Name: [id number]
[2019-05-14] MEDS: ASPIRIN 325 MG TAB PO SCH (18:22)
[2019-05-14] MEDS: LISINOPRIL 5 MG TAB PO SCH (18:31)
--- NOTE | 2019-05-14 19:10 | Progress Note ---
Assessment and Plan Patient is a 33 y/o woman w/ no PMH who p/w right sided weakness. According to the patient's clinical findings, it is likely that she has an acute ischemic stroke. 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 MRI brain revealed areas which enhanced with contrast, which did not correlate to area of diffusion restriction. Further, patient also had jeannette-ventricular areas of hyperintensity on T2 FLAIR. Plan: 1. Stroke: - MRI brain: Notable for areas of diffusion restriction in left subcortical region which correlates with ADC changes, indicative of likely stroke. Location appears to be in internal capsule, which also further indicates possible stroke. Further, areas on MRI brain which enhanced with contrast, which did not correlate to area of diffusion restriction, indicate possible demyelinating disease. Also had jeannette-ventricular areas of hyperintensity on T2 FLAIR. - Patient states that she had sudden onset of symptoms, which is more indicative of stroke. - CTA head/neck: pending - Echo: pending - CUS: no significant stenosis - Cont. ASA - Cont. statin. LDL goal <70 - Given patient's age, would need to rule out hypercoagulable state with hypercoagulable workup. Recommend hematology consult. Some labs were ordered for hypercoagulable workup, however would recommend for hematology consult for further workup. - Telemetry monitoring while in house - PT/OT/ST - DVT Ppx: Recommend lovenox 2. Hypertension: - Recommend BP goal of normotension. 3. Possible MS: - MRI C/T/L spine w/wo: revealed cervical and thoracic lesions indicative of demyelinating disease - LP with CSF studies including oligoclonal bands: IR attempted LP today, however was unsuccessful. Recommend for another attempt, to aid in diagnosis for this patient. - Check BATSHEVA, ESR, Syphilis panel, GUADALUPE level- pending. CRP 0.4 - Will start IV steroids at this time, given likely demyelinating disease noted on MRI C/T spine. Solumedrol 1gm/day for 5 days IV. This will be followed by 10- day oral taper of prednisne. - Will sign off, as I am not covering neurology service over the weekend. Please consult neurologist covering the service over the weekend for further neurologic monitoring and management. Thank you for allowing me to take part in the care of this patient. Warren Arnold MD Neurology Subjective Date of service: 05/14/19 Principal diagnosis: Stroke, possible MS Interval history: No acute events overnight. Objective - Exam Narrative Exam: Patient is alert, awake, oriented x4, follows complex commands. No dysarthria or aphasia noted. PERRL, EOMI, VFF, tongue midline, bilaterally intact to LT, no facial weakness noted. 4/5 in RUE/RLE, 5/5 in LUE/LLE. Decreased on right to light touch. Bilaterally intact to FTN and HTS. 2+ reflexes throughout. - Vital Sign Vital Signs - 12hr 05/14/19 05/14/19 05/14/19 08:00 08:26 12:00 Temperature 98.3 F Pulse Rate 66 78 Respiratory 18 18 Rate Respiratory 20 Rate [no pain] Blood Pressure 144/85 Blood Pressure [Right] O2 Sat by Pulse 98 100 Oximetry 05/14/19 05/14/19 05/14/19 16:00 18:00 18:31 Temperature 98 F Pulse Rate 70 74 74 Respiratory 20 Rate Respiratory Rate [no pain] Blood Pressure Blood Pressure 146/78 [Right] O2 Sat by Pulse 99 Oximetry - General Apperance Constitutional: comfortable - EENT EENT: ATNC, PERRL, mucous membranes moist - Respiratory Respiratory: lungs clear, normal breath sounds - Cardiovascular Cardiovascular: regular rate, normal S1, normal S2 Extremities: no clubbing, cyanosis, no inflammation - Gastrointestinal Gastrointestinal: normoactive bowel sounds, soft, non-tender - Integumentary Integumentary: normal - Musculoskeletal Musculoskeletal: no fluid collection, no pain - Psychiatric Psychiatric: mood/affect appropriate - Laboratory Findings CBC and BMP: 05/13/19 04:05 05/13/19 04:05 Abnormal Lab Findings: Abnormal Labs 05/12/19 05/12/19 05/12/19 14:31 15:07 15:07 MCH 27 L RDW 16.9 H Sodium Potassium BUN 6 L Creatinine Glucose 196 H POC Glucose 149 H Cholesterol LDL Cholesterol Direct HDL Cholesterol 05/12/19 05/13/19 05/13/19 21:16 00:15 04:05 MCH 27 L RDW 16.7 H Sodium Potassium BUN Creatinine Glucose POC Glucose 132 H 117 H Cholesterol LDL Cholesterol Direct HDL Cholesterol 05/13/19 04:05 MCH RDW Sodium 134 L Potassium 3.4 L BUN 5 L Creatinine 0.6 L Glucose 145 H POC Glucose Cholesterol 222 H LDL Cholesterol Direct 172 H HDL Cholesterol 35 L
[2019-05-14] MEDS: methylPREDNISolone Sod Suc 1,000 MG in SODIUM CHLORIDE 0.9% 250ML 250 ML IV SCH (21:24)
[2019-05-14] MEDS: PANTOPRAZOLE 40 MG TAB PO SCH (21:24)
[2019-05-14] MEDS: ENOXAPARIN 40 MG/0.4 ML INJ SUB-Q SCH (21:24)
[2019-05-15] MEDS: LISINOPRIL 5 MG TAB PO SCH (09:49)
[2019-05-15] MEDS: ASPIRIN 325 MG TAB PO SCH (09:49)
[2019-05-15] MEDS: PANTOPRAZOLE 40 MG TAB PO SCH (09:50)
--- NOTE | 2019-05-15 12:32 | Cat Scan Report ---
CT angio head INDICATION / CLINICAL INFORMATION: 33 years Female; MAIN: stroke, PT came in on Friday for RT side weakness [id number] 100ml. TECHNIQUE: Thin cut axial images obtained through the head during IV bolus contrast administration. S agittal, coronal, and 3 plane MIP reconstructions performed by the technologist. NASCET type criteria used evaluate stenoses. Automated exposure control utilized for radiation reduction purposes. COMPARISON: None available. FINDINGS: INTERNAL CAROTID ARTERIES: There is circumferential narrowing of the left internal carotid artery in the carotid canal, cavernous, and communicating portions of the vessel. Vasculitis/arteritis suspecte d. There is a focal area of narrowing in the distal communicating portion of the right internal carot id artery as well. There may be mild narrowing in the cavernous region. VERTEBROBASILAR SYSTEM: No significant narrowing appreciated. DISTAL BRANCHES: Distal branches of the posterior cerebral arteries are fairly symmetric in appearanc e and number. However, there are areas of beadlike narrowing in the DOC and MCA territories, which may also suggest arteritis. Findings in the left MCA territory appear to be greater than the right. ANEURYSM: None identified. ADDITIONAL FINDINGS: Remainder of the surrounding soft tissues are grossly normal. IMPRESSION: Areas of narrowing seen on this CTA of the head as described above in detail. Findings are concerning for arteritis/vasculitis. Please clinically correlate. Signer Name: Sha Brooks MD, III Signed: 05/15/2019 12:28 PM Workstation Name: [id number]
--- NOTE | 2019-05-15 12:43 | Cat Scan Report ---
CT angio neck INDICATION / CLINICAL INFORMATION: 33 years Female; MAIN: stroke, PT came in on Friday for RT side weakness [id number] 100ml. TECHNIQUE: Thin cut axial images obtained through the head during IV bolus contrast administration. S agittal, coronal, and 3 plane MIP reconstructions performed by the technologist. NASCET type criteria used evaluate stenoses. All CT scans at this location are performed using CT dose reduction for ALAR A by means of automated exposure control. COMPARISON: None available. FINDINGS: ARCH: Near bovine arch configuration noted. CAROTID ARTERIES: The visualized common and internal carotid arteries are patent. There is circumfere ntial narrowing of the left internal carotid artery throughout most of its course, which would sugges t arteritis/vasculitis, compare with findings intracranially. VERTEBRAL ARTERIES: Codominant vertebral system seen. There are focal areas of smooth like narrowing in the left vertebral artery approximately at the C5 and C6 levels. ADDITIONAL FINDINGS: The thyroid gland is mildly enlarged with multiple small nodules suggested. Larg est is seen posteriorly in the left lobe measuring 1.1 cm in maximum dimension. A developing, multino dular goiter might be consideration. Prominent soft tissue is seen in the vallecula, presumably related to lingual tonsillar tissue. Pleas e clinically correlate. IMPRESSION: Areas of narrowing in the left internal carotid and left vertebral arteries, as described above. Vasculitis/arteritis should be considered. Signer Name: Sha Brooks MD, III Signed: 05/15/2019 12:39 PM Workstation Name: [id number]
[2019-05-15] MEDS ORDERED: POTASSIUM CHLORIDE ER 20 MEQ TAB PO ONE (13:56)
--- NOTE | 2019-05-15 14:03 | Progress Note ---
Assessment and Plan Acute stroke - MRI showed areas of diffusion restriction in left subcortical region which correlates with acute CVA in internal capsule, - CTA head/neck: Left internal carotid and vertebral artery narrowing, suspecting vasculitis - Echo: pending - Cont. ASA, statin - Cont. statin. LDL goal <70 - Telemetry monitoring while in house - PT/OT/ST - hypercoaguable work up ordered, hematology consulted - will follow BATSHEVA, ESR, CRP, GUADALUPE level. HTN, stable Possible MS - MRI brain mores suggestive of demyelination - ordered MRI C/T/L spine w/wo -suggestive of demyelination - s/p LP -unable to do CHF studies as it was a dry tap, negative Syphilis panel, - will follow BATSHEVA, ESR, CRP, GUADALUPE level. -Started on 5 days of Solu-Medrol IV - DVT Ppx: lovenox 05/13 : plan to start on steroid if MRI spine suggestive of demyelinating disease. LP done today but no CSF drained 05/14 : Continue IV Solu-Medrol total 5 days- today day 2, follow hematology recommendation. CTA head neck suggestive for vasculitis Brief History: Patient is a 33-year-old female with no prior medical history who presents to ER with complaints of unsteady gait and right-sided weakness intermittently x 2 days. MRI suggestive of MS and acute stroke related to vasculitis. PT eval pending, will follow neurology recommendation. Physical exam: GENERAL: well-developed and well-nourished -[place] female lying on bed appeared to be in no discomfort. HEENT: Normocephalic. Atraumatic. No conjunctival congestion or icterus. Patient has moist mucous membranes. NECK: Supple. Trachea midline. CHEST/LUNGS: Clear to auscultated bilaterally, breathing nonlabored. No wheezes crackles or rhonchi. HEART/CARDIOVASCULAR: Regular in rate and rhythm. S1 and S2 positive. ABDOMEN: Abdomen is soft, nontender. Patient has normal bowel sounds. SKIN: There is no rash. Warm and dry. NEURO: Right-sided weakness. Follows command. MUSCULOSKELETAL: No joint effusion or tenderness. EXTRIMITY: No edema, no cyanosis or clubbing. PSYCH: Cooperative. Subjective Date of service: 05/15/19 Principal diagnosis: Stroke, possible MS Interval history: Patient seen and examined. Medical records and medication list reviewed. No acute event overnight noted by the RN. Patient denies any chest pain or difficulty breathing. Patient is tolerating diet. Continues to complains of right-sided weakness, getting IV Solu-Medrol Discussed plan of care at bedside with patient. Objective - Constitutional Vitals: Vital Signs - 12hr 05/15/19 05/15/19 05/15/19 04:01 08:00 08:05 Temperature 97.5 F L 97.6 F Pulse Rate 85 65 83 Pulse Rate [ 63 Apical] Pulse Rate [ 63 Radial] Respiratory 18 20 18 Rate Blood Pressure 125/90 141/86 O2 Sat by Pulse 100 99 100 Oximetry 05/15/19 05/15/19 05/15/19 09:49 11:38 12:00 Temperature 98.0 F Pulse Rate 63 62 76 Pulse Rate [ Apical] Pulse Rate [ Radial] Respiratory 18 Rate Blood Pressure 151/87 169/87 O2 Sat by Pulse 100 Oximetry - Labs CBC & Chem 7: 05/13/19 04:05 05/13/19 04:05
--- NOTE | 2019-05-15 15:30 | Hem/Onc Consultation ---
History of Present Illness - Reason for Consult Consult date: 05/15/19 hypercoag Requesting physician: VEENA JENSEN - History of Present Illness 33-year-old female with no prior medical history who presents to ER with complaints of unsteady gait and right-sided weakness intermittently x 2 days. Family states that patient experienced sudden difficulties with forming complete sentences and uncoordinated gait today.Patient transported to [facility] via private vehicle for further care and evaluation. Patient seen and evaluated in the emergency department, Tele-neurology was consulted. Patient found to have symptoms that were suspicious for CVA. Patient placed in observation status and admitted to medical floor for further evaluation on CVA protocol. Patient denies fever, chills, chest pain, palpitations, syncope, dizziness or recent ill contacts. seen by neurology - ? Demyelinating - adv hypercoag Ix Past History Past Medical History: No medical history Past Surgical History: Social history: lives with family, other (marijuana) Family history: hypertension Medications and Allergies Allergies Allergy/AdvReac Type Severity Reaction Status Date / Time No Known Allergies Allergy Unverified 04/26/17 15:15 Home Medications Medication Instructions Recorded Confirmed Last Taken Type Methocarbamol [Robaxin-750] 750 mg PO BID PRN #30 tablet 04/26/17 05/15/19 Unknown Rx Active Meds: Active Medications Acetaminophen (Tylenol) 650 mg PO Q4H PRN PRN Reason: Pain MILD(1-3)/Fever >100.5/REYES Aspirin (Aspirin) 325 mg PO QDAY [facility] Last Admin: 05/15/19 09:49 Dose: 325 mg Documented by: Atorvastatin Calcium (Lipitor) 40 mg PO QHS [facility] Last Admin: 05/14/19 21:24 Dose: 40 mg Documented by: Enoxaparin Sodium (Enoxaparin) 40 mg SUB-Q QDAY@2200 [facility] Last Admin: 05/14/19 21:24 Dose: 40 mg Documented by: Methylprednisolone Sodium Succinate 1,000 mg/ Sodium Chloride 250 mls @ 250 mls/hr IV Q24H [facility] Stop: 05/18/19 20:59 Last Admin: 05/14/19 21:24 Dose: 250 mls/hr Documented by: Insulin Human Regular (Humulin R) 0 units SUB-Q ACHS [facility]; Protocol Lisinopril (Zestril) 5 mg PO QDAY [facility] Last Admin: 05/15/19 09:49 Dose: 5 mg Documented by: Morphine Sulfate (Morphine) 2 mg IV Q4H PRN PRN Reason: Pain, Moderate (4-6) Ondansetron HCl (Zofran) 4 mg IV Q8H PRN PRN Reason: Nausea And Vomiting Pantoprazole Sodium (Protonix) 40 mg PO QDAY [facility] Last Admin: 05/15/19 09:50 Dose: 40 mg Documented by: Sodium Chloride (Sodium Chloride Flush Syringe 10 Ml) 10 ml IV BID [facility] Last Admin: 05/15/19 09:50 Dose: 10 ml Documented by: Sodium Chloride (Sodium Chloride Flush Syringe 10 Ml) 10 ml IV PRN PRN PRN Reason: LINE FLUSH Sodium Chloride (Sodium Chloride Flush Syringe 10 Ml) 10 ml IV PRN PRN PRN Reason: LINE FLUSH Exam - Constitutional Vitals: Last Vital Signs Temp 98.0 F 05/15/19 11:38 Pulse 76 05/15/19 12:00 Resp 18 05/15/19 11:38 BP 169/87 05/15/19 11:38 Pulse Ox 100 05/15/19 11:38 Assessment and Plan # Acute stroke - MRI showed areas of diffusion restriction in left subcortical region which correlates with acute CVA in internal capsule, - CTA head/neck: Left internal carotid and vertebral artery narrowing, suspecting vasculitis - Echo: pending - Cont. ASA, statin BATSHEVA, ESR, CRP, GUADALUPE level. # HTN, stable # Possible MS - MRI brain mores suggestive of demyelination neurology following factor V leiden has been ordered will do Prothrombin gene LA testing homocysteine ordered pt woul need OP follow up - Patient Problems (1) Stroke Current Visit: Yes Status: Acute
[2019-05-15] MEDS: INSULIN REGULAR, HUMAN 100 UNITS/1 ML SUB-Q SCH ×2 (17:26→21:06)
[2019-05-15] MEDS: methylPREDNISolone Sod Suc 1,000 MG in SODIUM CHLORIDE 0.9% 250ML 250 ML IV SCH (20:17)
[2019-05-15] MEDS: ENOXAPARIN 40 MG/0.4 ML INJ SUB-Q SCH (21:05)
[2019-05-16] MEDS: hydrALAZINE 20 MG/1 ML INJ IV PRN (00:35)
[2019-05-16] MEDS: LISINOPRIL 5 MG TAB PO SCH (09:57)
[2019-05-16] MEDS: PANTOPRAZOLE 40 MG TAB PO SCH (09:57)
[2019-05-16] MEDS: ASPIRIN 325 MG TAB PO SCH (09:57)
[2019-05-16] MEDS: INSULIN REGULAR, HUMAN 100 UNITS/1 ML SUB-Q SCH ×4 (09:59→21:26)
[2019-05-16 14:38] LABS: ANA Screen, IFA Negative (Negative)
--- NOTE | 2019-05-16 14:41 | Progress Note ---
Assessment and Plan Acute stroke - MRI showed areas of diffusion restriction in left subcortical region which correlates with acute CVA in internal capsule, - CTA head/neck: Left internal carotid and vertebral artery narrowing, suspecting vasculitis - Echo: pending - Cont. ASA, statin - Cont. statin. LDL goal <70 - Telemetry monitoring while in house - PT/OT/ST - hypercoaguable work up ordered, hematology consulted HTN, stable Possible MS - MRI brain mores suggestive of demyelination - ordered MRI C/T/L spine w/wo -suggestive of demyelination - s/p LP -unable to do CHF studies as it was a dry tap, negative Syphilis panel, - ordered BATSHEVA, ESR, CRP, GUADALUPE level. -Started on 5 days of Solu-Medrol IV - DVT Ppx: lovenox 05/13 : plan to start on steroid if MRI spine suggestive of demyelinating disease. LP done today but no CSF drained 05/14 : Continue IV Solu-Medrol total 5 days- today day 2, follow hematology recommendation. CTA head neck suggestive for vasculitis 05/15: Continue IV Solu-Medrol total 5 days- today day 3 Brief History: Patient is a 33-year-old female with no prior medical history who presents to ER with complaints of unsteady gait and right-sided weakness intermittently x 2 days. MRI suggestive of MS and acute stroke related to vasculitis. PT eval pending, will follow neurology recommendation. Physical exam: GENERAL: well-developed and well-nourished -[place] female lying on bed appeared to be in no discomfort. HEENT: Normocephalic. Atraumatic. No conjunctival congestion or icterus. Patient has moist mucous membranes. NECK: Supple. Trachea midline. CHEST/LUNGS: Clear to auscultated bilaterally, breathing nonlabored. No wheezes crackles or rhonchi. HEART/CARDIOVASCULAR: Regular in rate and rhythm. S1 and S2 positive. ABDOMEN: Abdomen is soft, nontender. Patient has normal bowel sounds. SKIN: There is no rash. Warm and dry. NEURO: Right-sided weakness. Follows command. MUSCULOSKELETAL: No joint effusion or tenderness. EXTRIMITY: No edema, no cyanosis or clubbing. PSYCH: Cooperative. Subjective Date of service: 05/16/19 Principal diagnosis: Stroke, possible MS Interval history: Patient seen and examined. Medical records and medication list reviewed. No acute event overnight noted by the RN. Patient denies any chest pain or difficulty breathing. Patient is tolerating diet. Continues to complains of right-sided weakness, getting IV Solu-Medrol Discussed plan of care at bedside with patient. Objective - Constitutional Vitals: Vital Signs - 12hr 05/16/19 05/16/19 05/16/19 04:31 07:34 07:46 Temperature 98.1 F 98.2 F Pulse Rate 81 67 72 Respiratory 18 18 Rate Blood Pressure 153/88 143/84 O2 Sat by Pulse 98 99 Oximetry 05/16/19 11:43 Temperature 97.9 F Pulse Rate 70 Respiratory 18 Rate Blood Pressure 143/86 O2 Sat by Pulse 98 Oximetry - Labs CBC & Chem 7: 05/13/19 04:05 05/13/19 04:05 Labs: Abnormal lab results 05/15/19 05/15/19 05/16/19 Range/Units 16:52 19:57 08:06 POC Glucose 308 H 308 H 310 H (70-105) 05/16/19 Range/Units 11:55 POC Glucose 345 H (70-105)
[2019-05-16] MEDS: ENOXAPARIN 40 MG/0.4 ML INJ SUB-Q SCH (21:23)
[2019-05-16] MEDS: methylPREDNISolone Sod Suc 1,000 MG in SODIUM CHLORIDE 0.9% 250ML 250 ML IV SCH (21:23)
[2019-05-17] MEDS: INSULIN REGULAR, HUMAN 100 UNITS/1 ML SUB-Q SCH ×4 (09:02→22:12)
[2019-05-17] MEDS: PANTOPRAZOLE 40 MG TAB PO SCH (09:04)
[2019-05-17] MEDS: LISINOPRIL 5 MG TAB PO SCH (09:19)
[2019-05-17] MEDS: ASPIRIN 325 MG TAB PO SCH (09:19)
[2019-05-17 12:18] LABS: Protein S, Free 117 % normal (50-147); Protein S, Total 124 % normal (70-140)
--- NOTE | 2019-05-17 13:58 | Progress Note ---
Assessment and Plan Acute stroke - MRI showed areas of diffusion restriction in left subcortical region which correlates with acute CVA in internal capsule, - CTA head/neck: Left internal carotid and vertebral artery narrowing, suspecting vasculitis - Echo: pending - Cont. ASA, statin - Cont. statin. LDL goal <70 - Telemetry monitoring while in house - PT/OT/ST - hypercoaguable work up ordered, hematology consulted HTN, stable Possible MS - MRI brain mores suggestive of demyelination - ordered MRI C/T/L spine w/wo -suggestive of demyelination - s/p LP -unable to do CHF studies as it was a dry tap, negative Syphilis panel, - ordered BATSHEVA, ESR, CRP, GUADALUPE level. -Started on 5 days of Solu-Medrol IV - DVT Ppx: lovenox 05/13 : plan to start on steroid if MRI spine suggestive of demyelinating disease. LP done today but no CSF drained 05/14 : Continue IV Solu-Medrol total 5 days- today day 2, follow hematology recommendation. CTA head neck suggestive for vasculitis 05/15: Continue IV Solu-Medrol total 5 days- today day 3 05/16 Continue IV Solu-Medrol total 5 days- today day 4, plan to transfer to [place] -we will follow-up with neurology Brief History: Patient is a 33-year-old female with no prior medical history who presents to ER with complaints of unsteady gait and right-sided weakness intermittently x 2 days. MRI suggestive of MS and acute stroke related to vasculitis. PT eval pending, will follow neurology recommendation. Physical exam: GENERAL: well-developed and well-nourished -[place] female lying on bed appeared to be in no discomfort. HEENT: Normocephalic. Atraumatic. No conjunctival congestion or icterus. Patient has moist mucous membranes. NECK: Supple. Trachea midline. CHEST/LUNGS: Clear to auscultated bilaterally, breathing nonlabored. No wheezes crackles or rhonchi. HEART/CARDIOVASCULAR: Regular in rate and rhythm. S1 and S2 positive. ABDOMEN: Abdomen is soft, nontender. Patient has normal bowel sounds. SKIN: There is no rash. Warm and dry. NEURO: Right-sided weakness. Follows command. MUSCULOSKELETAL: No joint effusion or tenderness. EXTRIMITY: No edema, no cyanosis or clubbing. PSYCH: Cooperative. Subjective Date of service: 05/17/19 Principal diagnosis: Stroke, possible MS Interval history: Patient seen and examined. Medical records and medication list reviewed. No acute event overnight noted by the RN. BG remains elevated, Continues to complains of right-sided weakness, getting IV Solu-Medrol Discussed plan of care at bedside with patient. Objective - Constitutional Vitals: Vital Signs - 12hr 05/17/19 05/17/19 05/17/19 04:58 07:35 07:40 Temperature 98.0 F 98.3 F Pulse Rate 52 L 50 L Pulse Rate [ Apical] Pulse Rate [ Radial] Respiratory 18 18 Rate Blood Pressure 174/86 188/89 O2 Sat by Pulse 100 Oximetry 05/17/19 05/17/19 09:19 10:00 Temperature Pulse Rate 51 L Pulse Rate [ 51 L Apical] Pulse Rate [ 52 L Radial] Respiratory 18 Rate Blood Pressure 188/89 O2 Sat by Pulse 96 Oximetry - Labs CBC & Chem 7: 05/13/19 04:05 05/18/19 10:12 Labs: Abnormal lab results 05/16/19 05/16/19 05/17/19 Range/Units 16:38 20:54 08:14 POC Glucose 390 H 300 H 251 H (70-105) 05/17/19 Range/Units 12:10 POC Glucose 386 H (70-105)
--- NOTE | 2019-05-17 14:30 | Progress Note ---
Assessment and Plan Patient is a 33 y/o woman w/ no PMH who p/w right sided weakness. According to the patient's clinical findings, it is likely that she has an acute ischemic stroke. However, there are findings on MRI indicative of possible concurrent MANAGER JAVA demyelinating disease. MRI brain revealed areas which enhanced with contrast, which did not correlate to area of diffusion restriction. Further, patient also had jeannette-ventricular areas of hyperintensity on T2 FLAIR. Plan: 1. Stroke/vasculitis/arteritis: - MRI brain: Notable for areas of diffusion restriction in left subcortical region which correlates with ADC changes, indicative of likely stroke. Location appears to be in internal capsule, which also further indicates possible stroke. Further, areas on MRI brain which enhanced with contrast, which did not correlate to area of diffusion restriction, indicate possible demyelinating disease. Also had jeannette-ventricular areas of hyperintensity on T2 FLAIR. - Patient states that she had sudden onset of symptoms, which is more indicative of stroke. - CTA head/neck: Notable for circumferential narrowing in cervical ICA as well as left vertebral artery, and left MCA greater than right MCA. Pattern suggestive of possible vasculitis/arteritis. - Echo: pending - CUS: no significant stenosis - Cont. ASA - Cont. statin. LDL goal <70 - Given patient's age, would need to rule out hypercoagulable state with hypercoagulable workup. Recommend hematology consult. Some labs were ordered for hypercoagulable workup. Remainder to be ordered by hematology. - Telemetry monitoring while in house - PT/OT/ST - DVT Ppx: Recommend lovenox -I have discussed case with Dr. Lamb and neurology service at [facility]. If patient is accepted, would transfer for further care. 2. Hypertension: - Recommend BP goal of normotension. 3. Possible MS: - MRI C/T/L spine w/wo: revealed cervical and thoracic lesions indicative of demyelinating disease - LP with CSF studies including oligoclonal bands: IR attempted LP today, however was unsuccessful. Recommend for another attempt, to aid in diagnosis for this patient. - Check ESR, GUADALUPE level- pending. CRP 0.4, syphilis negative, BATSHEVA screen negative. -Continue IV steroids at this time, given likely demyelinating disease noted on MRI C/T spine. Solumedrol 1gm/day for 5 days IV. This will be followed by 10-day oral taper of prednisne. -Will continue to monitor patient. Thank you for allowing me to take part in the care of this patient. Warren Arnold MD Neurology Subjective Date of service: 05/17/19 Principal diagnosis: Stroke, possible MS Interval history: No acute events overnight. Objective - Exam Narrative Exam: Patient is alert, awake, oriented x4, follows complex commands. No dysarthria or aphasia noted. PERRL, EOMI, VFF, tongue midline, bilaterally intact to LT, no facial weakness noted. 4/5 in RUE/RLE, 5/5 in LUE/LLE. Decreased on right to light touch. Bilaterally intact to FTN and HTS. 2+ reflexes throughout. - Vital Sign Vital Signs - 12hr 05/17/19 05/17/19 05/17/19 04:58 07:35 07:40 Temperature 98.0 F 98.3 F Pulse Rate 52 L 50 L Pulse Rate [ Apical] Pulse Rate [ Radial] Respiratory 18 18 Rate Blood Pressure 174/86 188/89 O2 Sat by Pulse 100 Oximetry 05/17/19 05/17/19 09:19 10:00 Temperature Pulse Rate 51 L Pulse Rate [ 51 L Apical] Pulse Rate [ 52 L Radial] Respiratory 18 Rate Blood Pressure 188/89 O2 Sat by Pulse 96 Oximetry - General Apperance Constitutional: comfortable - EENT EENT: ATNC, PERRL, mucous membranes moist - Respiratory Respiratory: lungs clear, normal breath sounds - Cardiovascular Cardiovascular: regular rate, normal S1, normal S2 Extremities: no clubbing, cyanosis, no inflammation - Gastrointestinal Gastrointestinal: normoactive bowel sounds, soft, non-tender - Integumentary Integumentary: normal - Musculoskeletal Musculoskeletal: no fluid collection, no pain - Psychiatric Psychiatric: mood/affect appropriate - Laboratory Findings CBC and BMP: 05/13/19 04:05 05/13/19 04:05 Abnormal Lab Findings: Abnormal Labs 05/12/19 05/12/19 05/12/19 14:31 15:07 15:07 MCH 27 L RDW 16.9 H Sodium Potassium BUN 6 L Creatinine Glucose 196 H POC Glucose 149 H Cholesterol LDL Cholesterol Direct HDL Cholesterol 05/12/19 05/13/19 05/13/19 21:16 00:15 04:05 MCH 27 L RDW 16.7 H Sodium Potassium BUN Creatinine Glucose POC Glucose 132 H 117 H Cholesterol LDL Cholesterol Direct HDL Cholesterol 05/13/19 05/15/19 05/15/19 04:05 16:52 19:57 MCH RDW Sodium 134 L Potassium 3.4 L BUN 5 L Creatinine 0.6 L Glucose 145 H POC Glucose 308 H 308 H Cholesterol 222 H LDL Cholesterol Direct 172 H HDL Cholesterol 35 L 05/16/19 05/16/19 05/16/19 08:06 11:55 16:38 MCH RDW Sodium Potassium BUN Creatinine Glucose POC Glucose 310 H 345 H 390 H Cholesterol LDL Cholesterol Direct HDL Cholesterol 05/16/19 05/17/19 05/17/19 20:54 08:14 12:10 MCH RDW Sodium Potassium BUN Creatinine Glucose POC Glucose 300 H 251 H 386 H Cholesterol LDL Cholesterol Direct HDL Cholesterol
[2019-05-17] MEDS: methylPREDNISolone Sod Suc 1,000 MG in SODIUM CHLORIDE 0.9% 250ML 250 ML IV SCH (22:12)
[2019-05-17] MEDS: ENOXAPARIN 40 MG/0.4 ML INJ SUB-Q SCH (22:13)
[2019-05-18 11:02] LABS: Myeloperoxidase Antibody <1.0 AI (<1.0)
[2019-05-18 11:03] LABS: BUN/Creatinine Ratio 23; Blood Urea Nitrogen 16 mg/dL (7-17); Calcium 8.6 mg/dL (8.4-10.2); Hemolysis Index 7
[2019-05-18] MEDS: ASPIRIN 325 MG TAB PO SCH (11:37)
[2019-05-18] MEDS: PANTOPRAZOLE 40 MG TAB PO SCH (11:37)
[2019-05-18] MEDS: LISINOPRIL 5 MG TAB PO SCH (11:38)
[2019-05-18] MEDS: INSULIN REGULAR, HUMAN 100 UNITS/1 ML SUB-Q SCH ×4 (11:39→22:55)
--- NOTE | 2019-05-18 13:50 | Progress Note ---
Assessment and Plan Acute stroke - MRI showed areas of diffusion restriction in left subcortical region which correlates with acute CVA in internal capsule, - CTA head/neck: Left internal carotid and vertebral artery narrowing, suspecting vasculitis - Echo: pending - Cont. ASA, statin - Cont. statin. LDL goal <70 - Telemetry monitoring while in house - PT/OT/ST - hypercoaguable work up ordered, hematology consulted HTN, stable Possible MS - MRI brain mores suggestive of demyelination - ordered MRI C/T/L spine w/wo -suggestive of demyelination - s/p LP -unable to do CHF studies as it was a dry tap, negative Syphilis panel, - ordered BATSHEVA, ESR, CRP, GUADALUPE level. -Started on 5 days of Solu-Medrol IV - DVT Ppx: lovenox 05/13 : plan to start on steroid if MRI spine suggestive of demyelinating disease. LP done today but no CSF drained 05/14 : Continue IV Solu-Medrol total 5 days- today day 2, follow hematology recommendation. CTA head neck suggestive for vasculitis 05/15: Continue IV Solu-Medrol total 5 days- today day 3 05/16 Continue IV Solu-Medrol total 5 days- today day 4, plan to transfer to [place] -we will follow-up with neurology 05/17 IV Solu-Medrol total 5 days completed today, plan to transfer to [place] - we will follow-up with neurology Brief History: Patient is a 33-year-old female with no prior medical history who presents to ER with complaints of unsteady gait and right-sided weakness intermittently x 2 days. MRI suggestive of MS and acute stroke related to vasculitis. PT eval pending, will follow neurology recommendation. Physical exam: GENERAL: well-developed and well-nourished -[place] female lying on bed appeared to be in no discomfort. HEENT: Normocephalic. Atraumatic. No conjunctival congestion or icterus. Patient has moist mucous membranes. NECK: Supple. Trachea midline. CHEST/LUNGS: Clear to auscultated bilaterally, breathing nonlabored. No wheezes crackles or rhonchi. HEART/CARDIOVASCULAR: Regular in rate and rhythm. S1 and S2 positive. ABDOMEN: Abdomen is soft, nontender. Patient has normal bowel sounds. SKIN: There is no rash. Warm and dry. NEURO: Right-sided weakness. Follows command. MUSCULOSKELETAL: No joint effusion or tenderness. EXTRIMITY: No edema, no cyanosis or clubbing. PSYCH: Cooperative. Subjective Date of service: 05/18/19 Principal diagnosis: Stroke, possible MS Interval history: Patient seen and examined. Medical records and medication list reviewed. No acute event overnight noted by the RN. BG remains elevated, Continues to complains of right-sided weakness, getting IV Solu-Medrol day 5 Neurology tried LP but had a dry tap Discussed plan of care at bedside with patient. Objective - Constitutional Vitals: Vital Signs - 12hr 05/18/19 05/18/19 05/18/19 04:24 04:45 08:43 Temperature 97.5 F L 98.3 F Pulse Rate 44 L 46 L 72 Respiratory 16 16 18 Rate Blood Pressure 188/93 175/81 136/80 O2 Sat by Pulse 96 96 100 Oximetry 05/18/19 11:38 Temperature Pulse Rate 72 Respiratory Rate Blood Pressure 136/80 O2 Sat by Pulse Oximetry - Labs CBC & Chem 7: 05/13/19 04:05 05/18/19 10:12 Labs: Abnormal lab results 05/17/19 05/17/19 05/18/19 Range/Units 16:35 21:18 09:47 Sodium (137-145) mmol/L Chloride (98-107) mmol/L Carbon Dioxide (22-30) mmol/L Glucose (65-100) mg/dL POC Glucose 409 H 291 H 419 H (70-105) 05/18/19 05/18/19 Range/Units 10:12 11:53 Sodium 134 L (137-145) mmol/L Chloride 97.4 L (98-107) mmol/L Carbon Dioxide 21 L (22-30) mmol/L Glucose 526 H* (65-100) mg/dL POC Glucose 432 H (70-105)
[2019-05-18] MEDS ORDERED: SODIUM CHLORIDE 0.9% 100 ML IVPB IV SCH (14:00)
[2019-05-18] MEDS ORDERED: LIDOCAINE (1%) 10 MG/1 ML VIAL 20 ML MDV INFILTRATI ONE (15:00)
[2019-05-18] MEDS ORDERED: INSULIN NPH/REGULAR 70/30 INJ SUB-Q SCH (17:00)
--- NOTE | 2019-05-18 20:18 | Procedure Note ---
Date of procedure: 05/18/19 Pre-op diagnosis: Possible Vasculitis, possible MS Post-op diagnosis: same Procedure: Lumbar Puncture. Informed consent obtained. Sterile precautions taken, area cleaned with appartus from LP kit with patient placed in left lateral position. 1% lidocaine locally injected. 18-gauge LP needle from kit inserted at L4-L5 region, however no CSF obtained. Patient did not complain of significant pain during or after procedure. In stable condition after procedure. Anesthesia: local Estimated blood loss: minimal Pathology: none Condition: stable Disposition: no change
--- NOTE | 2019-05-18 20:22 | Progress Note ---
Assessment and Plan Patient is a 33 y/o woman w/ no PMH who p/w right sided weakness. According to the patient's clinical findings, it is likely that she has an acute ischemic stroke. 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 MRI brain revealed areas which enhanced with contrast, which did not correlate to area of diffusion restriction. Further, patient also had jeannette-ventricular areas of hyperintensity on T2 FLAIR. Plan: 1. Stroke/vasculitis/arteritis: - MRI brain: Notable for areas of diffusion restriction in left subcortical region which correlates with ADC changes, indicative of likely stroke. Location appears to be in internal capsule, which also further indicates possible stroke. Further, areas on MRI brain which enhanced with contrast, which did not correlate to area of diffusion restriction, indicate possible demyelinating disease. Also had jeannette-ventricular areas of hyperintensity on T2 FLAIR. - Patient states that she had sudden onset of symptoms, which is more indicative of stroke. - CTA head/neck: Notable for circumferential narrowing in cervical ICA as well as left vertebral artery, and left MCA greater than right MCA. Pattern suggestive of possible vasculitis/arteritis. - Echo: EF 50-55%, LA normal size, bubble study negative. - CUS: no significant stenosis - Cont. ASA - Cont. statin. LDL goal <70 - Given patient's age, would need to rule out hypercoagulable state with hypercoagulable workup. Recommend hematology consult. Some labs were ordered for hypercoagulable workup. Remainder to be ordered by hematology. - Telemetry monitoring while in house - PT/OT/ST - DVT Ppx: Recommend lovenox -I have discussed case with Dr. Lamb and neurology service at [facility]. Patient wass accepted, and will be transferred for further care, including cerebral angiogram. 2. Hypertension: - Recommend BP goal of normotension. 3. Possible MS: - MRI C/T/L spine w/wo: revealed cervical and thoracic lesions indicative of demyelinating disease - LP with CSF studies including oligoclonal bands: IR attempted LP today, however was unsuccessful. Recommend for another attempt, to aid in diagnosis for this patient. - Check GUADALUPE level- pending. CRP 0.4, syphilis negative, BATSHEVA screen negative, ESR 43. -Continue IV steroids at this time, given likely demyelinating disease noted on MRI C/T spine. Solumedrol 1gm/day for 5 days IV. This will be followed by 10-day oral taper of prednisone. - Attempted bedside LP today, however unable to obtain CSF. LP attempted by radiology on 05/14/19, which was also unsuccessful. -Will continue to monitor patient. Patient accepted to [facility] for transfer. Thank you for allowing me to take part in the care of this patient. Warren Arnold MD Neurology Subjective Date of service: 05/18/19 Principal diagnosis: Stroke, possible MS Interval history: No acute events overnight. Objective - Exam Narrative Exam: Patient is alert, awake, oriented x4, follows complex commands. No dysarthria or aphasia noted. PERRL, EOMI, VFF, tongue midline, bilaterally intact to LT, no facial weakness noted. 4/5 in RUE/RLE, 5/5 in LUE/LLE. Decreased on right to light touch. Bilaterally intact to FTN and HTS. 2+ reflexes throughout. - Vital Sign Vital Signs - 12hr 05/18/19 05/18/19 05/18/19 08:43 10:00 11:38 Temperature 98.3 F Pulse Rate 72 72 Pulse Rate [ 72 Apical] Pulse Rate [ 75 Radial] Respiratory 18 20 Rate Blood Pressure 136/80 136/80 O2 Sat by Pulse 100 100 Oximetry - General Apperance Constitutional: comfortable - EENT EENT: ATNC, PERRL, mucous membranes moist, hearing intact, vision intact - Respiratory Respiratory: lungs clear, normal breath sounds - Cardiovascular Cardiovascular: regular rate, normal S1, normal S2 Extremities: no clubbing, cyanosis, no inflammation - Gastrointestinal Gastrointestinal: normoactive bowel sounds, soft, non-tender - Integumentary Integumentary: normal - Musculoskeletal Musculoskeletal: no fluid collection, no pain - Psychiatric Psychiatric: mood/affect appropriate - Laboratory Findings CBC and BMP: 05/13/19 04:05 05/18/19 10:12 Abnormal Lab Findings: Abnormal Labs 05/12/19 05/12/19 05/12/19 14:31 15:07 15:07 MCH 27 L RDW 16.9 H Sodium Potassium Chloride Carbon Dioxide BUN 6 L Creatinine Glucose 196 H POC Glucose 149 H Cholesterol LDL Cholesterol Direct HDL Cholesterol 05/12/19 05/13/19 05/13/19 21:16 00:15 04:05 MCH 27 L RDW 16.7 H Sodium Potassium Chloride Carbon Dioxide BUN Creatinine Glucose POC Glucose 132 H 117 H Cholesterol LDL Cholesterol Direct HDL Cholesterol 05/13/19 05/15/19 05/15/19 04:05 16:52 19:57 MCH RDW Sodium 134 L Potassium 3.4 L Chloride Carbon Dioxide BUN 5 L Creatinine 0.6 L Glucose 145 H POC Glucose 308 H 308 H Cholesterol 222 H LDL Cholesterol Direct 172 H HDL Cholesterol 35 L 05/16/19 05/16/19 05/16/19 08:06 11:55 16:38 MCH RDW Sodium Potassium Chloride Carbon Dioxide BUN Creatinine Glucose POC Glucose 310 H 345 H 390 H Cholesterol LDL Cholesterol Direct HDL Cholesterol 05/16/19 05/17/19 05/17/19 20:54 08:14 12:10 MCH RDW Sodium Potassium Chloride Carbon Dioxide BUN Creatinine Glucose POC Glucose 300 H 251 H 386 H Cholesterol LDL Cholesterol Direct HDL Cholesterol 05/17/19 05/17/19 05/18/19 16:35 21:18 09:47 MCH RDW Sodium Potassium Chloride Carbon Dioxide BUN Creatinine Glucose POC Glucose 409 H 291 H 419 H Cholesterol LDL Cholesterol Direct HDL Cholesterol 05/18/19 05/18/19 05/18/19 10:12 11:53 16:04 MCH RDW Sodium 134 L Potassium Chloride 97.4 L Carbon Dioxide 21 L BUN Creatinine Glucose 526 H* POC Glucose 432 H 385 H Cholesterol LDL Cholesterol Direct HDL Cholesterol
[2019-05-18] MEDS: ENOXAPARIN 40 MG/0.4 ML INJ SUB-Q SCH (22:55)
[2019-05-18] MEDS: methylPREDNISolone Sod Suc 1,000 MG in SODIUM CHLORIDE 0.9% 250ML 250 ML IV SCH (22:56)
[2019-05-18] MEDS ORDERED: SODIUM CHLORIDE 0.9% 1000 ML 1,000 ML IV SCH (23:00)
[2019-05-18] MEDS: hydrALAZINE 20 MG/1 ML INJ IV PRN (23:01)
[2019-05-19 00:42] VITALS: BP 159/79
--- NOTE | 2019-05-19 10:03 | Discharge Summary ---
Providers - Providers Date of Admission: 05/12/19 21:12 Date of discharge: 05/19/19 Attending physician: VEENA JENSEN 05/12/19 21:12 Occupational Therapy Evaluate and Treat [CONS] Routine Comment: Reason For Exam: Neuro deficits Physical Therapy Evaluation and Treat [CONS] Routine Comment: Reason For Exam: Neuro deficits 05/12/19 23:10 Consult to Physician [CONS] Routine Comment: Consulting Provider: KRISTEN CAMPA Physician Instructions: Reason For Exam: cva 05/15/19 12:13 Consult to Physician [CONS] Routine Comment: Consulting Provider: HAI ANDERSON Physician Instructions: Reason For Exam: possible hypercoaguable state Primary care physician: REEL WINDER Hospitalization Condition: Stable Hospital course: Patient is a 33-year-old female with no prior medical history who presents to ER with complaints of unsteady gait and right-sided weakness intermittently x 2 days. MRI suggestive of MS and acute stroke related to vasculitis. PT recommended HH. Neurology recommended to transfer to [place] for further management. Patient was accepted to [place] and transferred in stable condition. 05/13 : plan to start on steroid if MRI spine suggestive of demyelinating disease. LP done today but no CSF drained 05/14 : Continue IV Solu-Medrol total 5 days- today day 2, follow hematology recommendation. CTA head neck suggestive for vasculitis 05/15: Continue IV Solu-Medrol total 5 days- today day 3 05/16 Continue IV Solu-Medrol total 5 days- today day 4, plan to transfer to [place] -we will follow-up with neurology 05/17 IV Solu-Medrol total 5 days completed today, plan to transfer to [place]. transfer to [facility] Discharge diagnosis and Mx: Acute stroke - MRI showed areas of diffusion restriction in left subcortical region which correlates with acute CVA in internal capsule, - CTA head/neck: Left internal carotid and vertebral artery narrowing, suspecting vasculitis - Echo: pending - Cont. ASA, statin - Cont. statin. LDL goal <70 - Telemetry monitoring while in house - PT/OT/ST - hypercoaguable work up ordered, hematology consulted HTN, stable Possible MS - MRI brain mores suggestive of demyelination - ordered MRI C/T/L spine w/wo -suggestive of demyelination - s/p LP -unable to do CHF studies as it was a dry tap, negative Syphilis panel, - ordered BATSHEVA, ESR, CRP, GUADALUPE level. - Started on 5 days of Solu-Medrol IV - complete today - DVT Ppx: lovenox Physical exam: GENERAL: well-developed and well-nourished -[place]oc[place] female lying on bed appeared to be in no discomfort. HEENT: Normocephalic. Atraumatic. No conjunctival congestion or icterus. Patient has moist mucous membranes. NECK: Supple. Trachea midline. CHEST/LUNGS: Clear to auscultated bilaterally, breathing nonlabored. No wheezes crackles or rhonchi. HEART/CARDIOVASCULAR: Regular in rate and rhythm. S1 and S2 positive. ABDOMEN: Abdomen is soft, nontender. Patient has normal bowel sounds. SKIN: There is no rash. Warm and dry. NEURO: Right-sided weakness. Follows command. MUSCULOSKELETAL: No joint effusion or tenderness. EXTRIMITY: No edema, no cyanosis or clubbing. PSYCH: Cooperative. Disposition: [id number]/[place]-70 ANOTHER TYPE HLTHCARE Time spent for discharge: 34 minutes Core Measure Documentation - Palliative Care Palliative Care/ Comfort Measures: Not Applicable - Core Measures Any of the following diagnoses?: stroke - Stroke Discharge Requirements Statin for LDL = or >70 mg/dl on DC: Yes Anticoag for atrial fib/atrial flutter: Not Applicable Antithrombotic for ischemic stroke: Yes Exam - Constitutional Vitals: Temp Pulse Resp BP Pulse Ox 97.8 F 76 16 159/79 99 05/19/19 00:10 05/19/19 00:10 05/19/19 00:10 05/19/19 00:10 05/19/19 00:10 Plan Activity: advance as tolerated Weight Bearing Status: Weight Bear as Tolerated Diet: low fat, low salt Follow up with: PRIMARY CAREMD [Primary Care Provider] - 3-5 Days
[2019-05-20 07:35] LABS: Factor V (Leiden) Mutation SEE SCANNED RESULT
== END 2019-05-19 02:40 | disposition short-term general hospital (02) | DRG 65 ==
LOC: ED 14:15 → 4A 21:12
PROVIDERS: ADMIT Internal Medicine Geriatric Medicine; ATTEND Internal Medicine
PROC: 00JU3ZZ Inspection of Spinal Canal, Percutaneous Approach (ICD-10-PCS; principal; 2019-05-14)
PROC: 00JU3ZZ Inspection of Spinal Canal, Percutaneous Approach (ICD-10-PCS; 2019-05-18)
DX: I63.9 Cerebral infarction, unspecified (principal); G81.91 Hemiplegia, unspecified affecting right dominant side; G35 Multiple sclerosis; F12.90 Cannabis use, unspecified, uncomplicated; Z82.49 Family history of ischemic heart disease and other diseases of the circulatory system
CPT/HCPCS: 36415; 62270; 70450; 70496; 70498; 70553; 71045; 72156; 72157; 72158; 77003; 80048; 80061; 80307; 82164; 82962; 83516; 85025; 85210; 85220; 85301; 85305; 85610; 85613; 85652; 85730; 86021; 86038; 86140; 86592; 90686; 93005; 93010; 93306; 93880; G0378; A9270-GY; A9577; J0360; J1650; J1815; J2930; J7030; J7050; Q9967